=== PATIENT | male | born 1955 | race Caucasian/White ===

== ENCOUNTER 2016-10-19 10:08 | Emergency (ER) | payer MEDICARE, OTHER ==
[~2016-10-19] VITALS: Ht 160 cm; Wt 65.0 kg
[~2016-10-19 10:08] MED LIST: ASPI81 PO; BUSP10TA PO; CALC600T34 PO; CLOZ100T3 PO; GABA300C3 PO; LISI-363 PO; PROZ40CA PO; RANI150T PO; ROSU20 PO; TAB-TAB PO; TRIH5TAB2 PO; WAL-10TA2 PO; ZIPR1CAP27 PO
[2016-10-19 10:10] VITALS: BP 124/58; PULSE 74; RESP 15; TEMP 98.3; O2SAT 98
[2016-10-19] MEDS ORDERED: BUSP15TA PO (10:26)
[2016-10-19] MEDS ORDERED: FLUO1TAB3 PO (10:26)
[2016-10-19] MEDS ORDERED: GABA300C5 PO (10:26)
[2016-10-19] MEDS ORDERED: TRIH2 PO (10:26)
[2016-10-19] MEDS ORDERED: CLOZ100T3 PO (10:26)
[2016-10-19] MEDS ORDERED: ROSU20 PO (10:26)
[2016-10-19] MEDS ORDERED: ASPI81CH CHEW (10:26)
[2016-10-19] MEDS ORDERED: RANI150T PO (10:27)
[2016-10-19] MEDS ORDERED: IBUPROFEN 800 MG TAB PO ONE (10:30)
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
--- NOTE | 2016-10-19 11:10 | RADRPT ---
EXAM DATE/TIME: 10/19/2016 10:44 [facility] COMPARISON: No previous studies available for comparison. INDICATIONS : Rib pain. Patient states pain on the left side towards the back. MEDICAL HISTORY : Seizures. SURGICAL HISTORY : None. ENCOUNTER: Initial ACUITY: 3 days PAIN SCORE: 5/10 LOCATION: Bilateral chest FINDINGS: Multiple old rib fractures are present on the right. There is a single nondisplaced rib fracture of anterior eighth rib. There is no pneumothorax. Heart and pulmonary vascularity are normal. CONCLUSION: 1. Old and new rib fractures as described above. 2. There is no pneumothorax. Nabeel Kinsey MD FACR on October 19, 2016 at 11:00 Board Certified Radiologist. This report was verified electronically.
[2016-10-19] MEDS ORDERED: IBUP-232 PO (11:24)
== END 2016-10-19 11:35 | disposition home or self-care (01) ==
LOC: NEPD 10:08
DX: S22.31XA Fracture of one rib, right side, initial encounter for closed fracture (principal); Y09 Assault by unspecified means; V19.9XXA Pedal cyclist (driver) (passenger) injured in unspecified traffic accident, initial encounter; Y93.55 Activity, bike riding
CPT/HCPCS: 71020; 99283

== ENCOUNTER 2017-02-07 18:06 | Emergency (ER) | payer MEDICARE, MEDICAID ==
[~2017-02-07] VITALS: Ht 157.5 cm; Wt 67.0 kg
[~2017-02-07 18:06] MED LIST changes: -ASPI81 PO; +ASPI81CH CHEW; -BUSP10TA PO; +BUSP15TA PO; -CALC600T34 PO; +FLUO1TAB3 PO; -GABA300C3 PO; +GABA300C5 PO; +IBUP-232 PO; -LISI-363 PO; -PROZ40CA PO; -TAB-TAB PO; +TRIH2 PO; -TRIH5TAB2 PO; -WAL-10TA2 PO; -ZIPR1CAP27 PO
[2017-02-07 18:08] VITALS: BP 157/84; PULSE 75; RESP 20; TEMP 98.5; O2SAT 96
--- NOTE | 2017-02-07 19:08 | PD ---
HPI Chief Complaint: Musculoskeletal Complaint Time Seen by Provider: 18:50 Travel History International Travel<30 days: No Contact w/Intl Traveler<30days: No Traveled to known affect area: No History of Present Illness HPI 62-year-old male complains of neck pain upper back pain and left arm pain. Patient states that he has history of chronic neck back pain and left arm pain for the past 2 years. Patient has been seen by orthopedist for that. Patient has been taking ibuprofen for pain. Patient states that the pain is worse today. Patient denies any new injury. Patient denies headache. Patient denies any chest pain or shortness of breath. Patient denies abdominal pain. Patient denies any focal weakness or numbness of extremity. PFSH Past Medical History Arthritis: Yes (HANDS AND FEET) Autoimmune Disease: No Anxiety: Yes Depression: Yes Cancer: No Cardiovascular Problems: No Cerebrovascular Accident: Yes Diabetes: Yes Patient Takes Glucophage: No Diminished Hearing: No Gastrointestinal Disorders: No Genitourinary: Yes Hepatitis: No Hiatal Hernia: Yes (REPAIRED) Hypertension: Yes Medical other: Yes (HX STROKES, SEIZURES) Musculoskeletal: Yes (SCOLIOSIS) Neurologic: Yes Psychiatric: Yes (SCHIZOAFFECTIVE DISORDER) Respiratory: No Immunizations Current: No Schizophrenia: Yes Seizures: Yes Thyroid Disease: No Influenza Vaccination: No Past Surgical History Genitourinary Surgery: No Pacemaker: No Other Surgery: Yes Social History Alcohol Use: No (HX OF ALCOHOLISM) Tobacco Use: No Substance Use: No Allergies-Medications (Allergen,Severity, Reaction): Coded Allergies: ipratropium (Verified Allergy, Severe, UNKNOWN, 02/07/17) melon (Verified Allergy, Severe, UNKNOWN, 02/07/17) pineapple (Verified Allergy, Severe, UNKNOWN, 02/07/17) watermelon (Verified Allergy, Severe, UNKNOWN, 02/07/17) codeine (Verified Allergy, Mild, UNKNOW REACTION, 02/07/17) clonazepam (Verified Allergy, Unknown, 02/07/17) QUESTIONABLE ALLERGY penicillin G (Verified Allergy, Unknown, 02/07/17) Reported Meds & Prescriptions Reported Meds & Active Scripts Active Robaxin (Methocarbamol) 750 Mg Tab 750 Mg PO QID Mobic (Meloxicam) 15 Mg Tab 15 Mg PO DAILY Ibuprofen 600 Mg Tab 600 Mg PO Q6H PRN Reported Ranitidine (Ranitidine HCl) 150 Mg Tab 150 Mg PO BID Clozapine 100 Mg Tab 100 Mg PO DAILY Buspirone (Buspirone HCl) 15 Mg Tab 15 Mg PO BID Trihexyphenidyl (Trihexyphenidyl HCl) 2 Mg Tab 2 Mg PO BID Crestor (Rosuvastatin Calcium) 20 Mg Tab 20 Mg PO BID Fluoxetine (Fluoxetine HCl) 20 Mg Tab 20 Mg PO TID Gabapentin 300 Mg Cap 300 Mg PO TID Aspirin 81 Mg Chew 81 Mg CHEW DAILY Review of Systems General / Constitutional: No: Fever Eyes: No: Visual changes HENT: Positive: Neck Pain, No: Headaches Cardiovascular: No: Chest Pain or Discomfort Respiratory: No: Shortness of Breath Gastrointestinal: No: Abdominal Pain Genitourinary: No: Dysuria Musculoskeletal: Positive: Pain Skin: No Rash Neurologic: No: Weakness Psychiatric: No: Depression Endocrine: No: Polydipsia Hematologic/Lymphatic: No: Easy Bruising Physical Exam Narrative GENERAL: Well-nourished, well-developed patient. SKIN: Focused skin assessment warm/dry. HEAD: Normocephalic. EYES: No scleral icterus. No injection or drainage. NECK: Supple, trachea midline. No JVD or lymphadenopathy. Mild tenderness on palpation palpatory cervical spine and upper thoracic spine. CARDIOVASCULAR: Regular rate and rhythm without murmurs, gallops, or rubs. RESPIRATORY: Breath sounds equal bilaterally. No accessory muscle use. GASTROINTESTINAL: Abdomen soft, non-tender, nondistended. MUSCULOSKELETAL: No cyanosis, or edema. Mild tenderness on palpation the triceps area of the left upper arm. No redness or swelling no deformity noted. Full range of motion of the shoulder the elbow and wrist and fingers. Sensory motor function distally intact. Good capillary refill. BACK: Patient has mild tenderness on palpation of the thoracic area, without obvious deformity. No CVA tenderness. Neurologic exam normal. Data Data Last Documented VS Vital Signs Date Time Temp Pulse Resp B/P (MAP) Pulse Ox O2 Delivery O2 Flow Rate FiO2 02/07/17 21:50 02/07/17 18:08 98.5 75 20 96 Room Air Orders Orders Spine, Cervical - Ltd (Ap&Lat) (02/07/17 18:58) Spine, Thoracic-Ap/Lat/Sw(3vw) (02/07/17 18:58) Humerus (Min 2vws) (02/07/17 18:58) Ed Discharge Order (02/07/17 20:44) [facility] Medical Decision Making Medical Screen Exam Complete: Yes Emergency Medical Condition: Yes Interpretation(s) Last Impressions Thoracic Spine X-Ray 02/07/171857 Signed Impressions: Service Date/Time: Tuesday, February 07, 2017 19:34 - CONCLUSION: 1. Compression deformities in the thoracic spine, moderate at T6 of uncertain age. This could be evaluated with thoracic spine CT. Lee Harrison MD Humerus X-Ray 02/07/171857 Signed Impressions: Service Date/Time: Tuesday, February 07, 2017 19:19 - CONCLUSION: 1. Negative left humerus radiograph. Lee Harrison MD Cervical Spine X-Ray 02/07/171857 Signed Impressions: Service Date/Time: Tuesday, February 07, 2017 19:23 - CONCLUSION: 1. No acute findings. Moderate degenerative change at C5-6. Lee Harrison MD Differential Diagnosis Differential diagnosis including cervical thoracic strain, fracture, HNP, radiculopathy, Narrative Course 62-year-old male complains of neck pain and upper back pain and left arm pain. History of chronic neck and back pain and left arm pain in the past. Diagnosis Primary Impression: Acute exacerbation of chronic low back pain Additional Impression: Arm pain, left Patient Instructions: General Instructions Additional Instructions: Take medications as needed for pain. Follow-up with personal physician and orthopedist. Med/Other Pt SpecificInfo: Prescription(s) given Scripts Methocarbamol (Robaxin) 750 Mg Tab 750 MG PO QID for Pain, #40 TAB 0 Refills Prov: Yazan Horton MD 02/07/17 Meloxicam (Mobic) 15 Mg Tab 15 MG PO DAILY for Pain, #20 TAB 0 Refills Prov: Yazan Horton MD 02/07/17 Disposition: 01 DISCHARGE HOME Condition: Stable Yazan Horton MD Feb 07, 2017 19:08
--- NOTE | 2017-02-07 20:10 | RADRPT ---
EXAM DATE/TIME: 02/07/2017 19:19 [facility] COMPARISON: No previous studies available for comparison. INDICATIONS : Pain. MEDICAL HISTORY : Seizures. SURGICAL HISTORY : None. ENCOUNTER: Initial ACUITY: 1 day PAIN SCORE: 5/10 LOCATION: Left humerus. FINDINGS: Two view examination of the left humerus demonstrates no evidence of fracture or dislocation. Bony m ineralization is normal. The soft tissue structures are intact. CONCLUSION: 1. Negative left humerus radiograph. Lee Harrison MD on February 07, 2017 at 20:07 Board Certified Radiologist. This report was verified electronically.
--- NOTE | 2017-02-07 20:11 | RADRPT ---
EXAM DATE/TIME: 02/07/2017 19:23 [facility] COMPARISON: No previous studies available for comparison. INDICATIONS : Pain. MEDICAL HISTORY : None. SURGICAL HISTORY : None. ENCOUNTER: Initial ACUITY: 1 week PAIN SCORE: 5/10 LOCATION: Neck. FINDINGS: Two projection examination was performed. There is normal alignment and curvature of the vertebral b odies down to the level of C7. No evidence of fracture or subluxation. Vertebral body height is reinier ntained. The disc spaces are maintained. The prevertebral soft tissues are of normal thickness. Th e atlanto-axial articulation is intact. CONCLUSION: 1. No acute findings. Moderate degenerative change at C5-6. Lee Harrison MD on February 07, 2017 at 20:09 Board Certified Radiologist. This report was verified electronically.
--- NOTE | 2017-02-07 20:18 | RADRPT ---
EXAM DATE/TIME: 02/07/2017 19:34 [facility] COMPARISON: No previous studies available for comparison. INDICATIONS : Pain. MEDICAL HISTORY : None. SURGICAL HISTORY : None. ENCOUNTER: Initial ACUITY: 1 week PAIN SCORE: 5/10 LOCATION: Upper back. FINDINGS: Mild scoliosis. There are multiple compression deformities in the thoracic spine. This includes a mod erate compression deformity at T6 and also compression deformity of L1. Mild endplate depressions als o present at several vertebra and upper thoracic spine. Age is somewhat indeterminate. CONCLUSION: 1. Compression deformities in the thoracic spine, moderate at T6 of uncertain age. This could be eval uated with thoracic spine CT. Lee Harrison MD on February 07, 2017 at 20:10 Board Certified Radiologist. This report was verified electronically.
[2017-02-07] MEDS ORDERED: ROBA750T PO (20:37)
[2017-02-07] MEDS ORDERED: MOBI15TA PO (20:37)
== END 2017-02-07 21:51 | disposition home or self-care (01) ==
LOC: NEPD 18:06
DX: M54.5 Low back pain (principal); G89.29 Other chronic pain; M79.602 Pain in left arm; M54.2 Cervicalgia; E11.9 Type 2 diabetes mellitus without complications; Z86.73 Personal history of transient ischemic attack (TIA), and cerebral infarction without residual deficits; I10 Essential (primary) hypertension; R56.9 Unspecified convulsions; M41.9 Scoliosis, unspecified
CPT/HCPCS: 72040; 72072; 73060; 99284

== ENCOUNTER 2017-08-24 14:06 | Emergency (ER) | payer OTHER, MEDICARE, MEDICAID ==
[~2017-08-24] VITALS: Ht 177.8 cm; Wt 80.0 kg
[~2017-08-24 14:06] MED LIST changes: +ASPI-516 CHEW; -ASPI81CH CHEW; +MOBI15TA PO; +ROBA750T PO
[2017-08-24 14:14] VITALS: BP 129/70; PULSE 79; RESP 16; TEMP 98.5; O2SAT 98
[2017-08-24] MEDS ORDERED: TETANUS/DIPHTHERIA TOXOID ADULT 0.5 ML VIAL IM ONE (14:30)
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
== END 2017-08-24 18:33 | disposition home or self-care (01) ==
LOC: NEPD 14:06
DX: S01.01XA Laceration without foreign body of scalp, initial encounter (principal); F25.9 Schizoaffective disorder, unspecified; Z23 Encounter for immunization; V03.90XA Pedestrian on foot injured in collision with car, pick-up truck or van, unspecified whether traffic or nontraffic accident, initial encounter; Y92.410 Unspecified street and highway as the place of occurrence of the external cause
CPT/HCPCS: 12001; 70450; 71046; 72125; 90471; 90714

== ENCOUNTER 2017-08-31 14:15 | Emergency (ER) | payer MEDICAID, MEDICARE ==
[~2017-08-31] VITALS: Ht 157.5 cm; Wt 65.0 kg
[2017-08-31 14:29] VITALS: BP 112/78; PULSE 76; RESP 16; TEMP 98; O2SAT 97
--- NOTE | 2017-08-31 14:43 | PD ---
HPI Chief Complaint: Wound/Suture/Staple Re-Check Time Seen by Provider: 14:39 Travel History International Travel<30 days: No Contact w/Intl Traveler<30days: No Traveled to known affect area: No History of Present Illness HPI Patient comes emergency department requesting staple removal from scalp that was placed 7 days ago. Patient denies any complaints or concerns. Reports been keeping it clean using soap and water. Denies any making symptoms better or worse. Severity mild. PFSH Past Medical History Arthritis: Yes (HANDS AND FEET) Autoimmune Disease: No Anxiety: Yes Depression: Yes Cancer: No Cardiovascular Problems: No Cerebrovascular Accident: Yes Diabetes: Yes Diminished Hearing: No Gastrointestinal Disorders: No Genitourinary: Yes Hepatitis: No Hiatal Hernia: Yes (REPAIRED) Hypertension: Yes Musculoskeletal: Yes (SCOLIOSIS) Neurologic: Yes Psychiatric: Yes (SCHIZOAFFECTIVE DISORDER) Respiratory: No Immunizations Current: No Schizophrenia: Yes Seizures: Yes Thyroid Disease: No Past Surgical History Genitourinary Surgery: No Pacemaker: No Thoracic Surgery: No Other Surgery: Yes Social History Alcohol Use: No (HX OF ALCOHOLISM) Tobacco Use: No Substance Use: No Allergies-Medications (Allergen,Severity, Reaction): Coded Allergies: ipratropium (Verified Allergy, Severe, UNKNOWN, 08/31/17) melon (Verified Allergy, Severe, UNKNOWN, 08/31/17) pineapple (Verified Allergy, Severe, UNKNOWN, 08/31/17) watermelon (Verified Allergy, Severe, UNKNOWN, 08/31/17) codeine (Verified Allergy, Mild, UNKNOW REACTION, 08/31/17) clonazepam (Verified Allergy, Unknown, 08/31/17) QUESTIONABLE ALLERGY penicillin G (Verified Allergy, Unknown, 08/31/17) Reported Meds & Prescriptions Reported Meds & Active Scripts Active Robaxin (Methocarbamol) 750 Mg Tab 750 Mg PO QID Mobic (Meloxicam) 15 Mg Tab 15 Mg PO DAILY Ibuprofen 600 Mg Tab 600 Mg PO Q6H PRN Reported Ranitidine (Ranitidine HCl) 150 Mg Tab 150 Mg PO BID Clozapine 100 Mg Tab 100 Mg PO DAILY Buspirone (Buspirone HCl) 15 Mg Tab 15 Mg PO BID Trihexyphenidyl (Trihexyphenidyl HCl) 2 Mg Tab 2 Mg PO BID Crestor (Rosuvastatin Calcium) 20 Mg Tab 20 Mg PO BID Fluoxetine (Fluoxetine HCl) 20 Mg Tab 20 Mg PO TID Gabapentin 300 Mg Cap 300 Mg PO TID Aspirin 81 Mg Chew 81 Mg CHEW DAILY Review of Systems Except as stated in HPI: all other systems reviewed are Neg Physical Exam Narrative GENERAL: Well-developed, overly nourished, in no acute distress, and non-ill appearing. SKIN: Well-healing laceration over occipital lobe. 7 lashanda are noted that are dry clean and intact. No signs of infection. No crepitus. HEAD: Atraumatic. Normocephalic. EYES: Pupils equal and round. EOMI. No scleral icterus. No injection or drainage. ENT: No nasal bleeding or discharge. Mucous membranes pink and moist. NECK: Trachea midline. Supple. No nuclear rigidity. RESPIRATORY: No accessory muscle use. No respiratory distress. MUSCULOSKELETAL: No obvious deformities. No clubbing. No cyanosis. No edema. Full range of motion. NEUROLOGICAL: Awake and alert. No obvious cranial nerve deficits. Motor grossly within normal limits. Normal speech. PSYCHIATRIC: Appropriate mood and affect; insight and judgment normal. Data Data Last Documented VS Vital Signs Date Time Temp Pulse Resp B/P (MAP) Pulse Ox O2 Delivery O2 Flow Rate FiO2 08/31/17 14:29 98.0 76 16 112/78 (89) 97 Orders Orders Ed Discharge Order (08/31/17 14:43) MDM Medical Decision Making Medical Screen Exam Complete: Yes Emergency Medical Condition: Yes Differential Diagnosis Wound check, staple removal, wound infection Narrative Course Patient in no obvious distress upon re-evaluation. Any questions/concerns in reference to patient diagnosis/condition discussed and clarified prior to patient's discharge. Reinforced sheer importance of close follow up with patient 's primary physician or primary care clinic. Instructed patient to return to ED immediately, if symptoms return/worsen. Patient showed understanding of above instructions. Further instructions and recommendations were detailed in discharge paperwork. Patient ambulated without difficulty out of ED at discharge. Procedures Procedure Narrative Verbal consent was obtained. 7 [place] were easily removed. Patient tolerated procedure well. There was no complications. Diagnosis Primary Impression: Removal of lashanda Patient Instructions: General Instructions, Stitches Removal (ED) Additional Instructions: Follow-up with your primary care physician in 3-5 days for reevaluation. Keep wound dry and clean as possible using soap and water. Use Neosporin to promote healing. Return to the emergency department if symptoms get worse. Disposition: 01 DISCHARGE HOME Condition: Stable Joe Dickey August 31, 2017 14:43
== END 2017-08-31 15:18 | disposition home or self-care (01) ==
LOC: NEPK 14:15
DX: S01.01XD Laceration without foreign body of scalp, subsequent encounter (principal); X58.XXXD Exposure to other specified factors, subsequent encounter; Z48.02 Encounter for removal of sutures
CPT/HCPCS: 99281

== ENCOUNTER 2017-09-07 10:48 | Emergency (ER) | payer MEDICARE ==
[~2017-09-07] VITALS: Ht 157.5 cm; Wt 65.0 kg
[2017-09-07 11:02] VITALS: BP 171/80; PULSE 72; RESP 17; TEMP 97.7
--- NOTE | 2017-09-07 11:10 | PD ---
HPI Chief Complaint: Wound/Suture/Staple Re-Check Time Seen by Provider: 11:09 Travel History International Travel<30 days: No Contact w/Intl Traveler<30days: No Traveled to known affect area: No History of Present Illness HPI 62-year-old male presents the ED for staple removal. Patient states that he fell on 08/24 and had lashanda placed in the ED. He practiced good wound care and had the lashanda removed on 08/31. He states that at that time there was a large scab over the area. He states that as the scab has healed he realized there was a remaining staple. He denies discharge from the wound, redness, warmth, fevers, chills. PFSH Past Medical History Arthritis: Yes (HANDS AND FEET) Autoimmune Disease: No Anxiety: Yes Depression: Yes Cancer: No Cardiovascular Problems: No Cerebrovascular Accident: Yes Diabetes: Yes Diminished Hearing: No Gastrointestinal Disorders: No Genitourinary: Yes Hepatitis: No Hiatal Hernia: Yes (REPAIRED) Hypertension: Yes Musculoskeletal: Yes (SCOLIOSIS) Neurologic: Yes Psychiatric: Yes (SCHIZOAFFECTIVE DISORDER) Respiratory: No Immunizations Current: No Schizophrenia: Yes Seizures: Yes Thyroid Disease: No Past Surgical History Genitourinary Surgery: No Pacemaker: No Thoracic Surgery: No Other Surgery: Yes Social History Alcohol Use: No (HX OF ALCOHOLISM) Tobacco Use: No Substance Use: No Allergies-Medications (Allergen,Severity, Reaction): Coded Allergies: ipratropium (Verified Allergy, Severe, UNKNOWN, 09/07/17) melon (Verified Allergy, Severe, UNKNOWN, 09/07/17) pineapple (Verified Allergy, Severe, UNKNOWN, 09/07/17) watermelon (Verified Allergy, Severe, UNKNOWN, 09/07/17) codeine (Verified Allergy, Mild, UNKNOW REACTION, 09/07/17) clonazepam (Verified Allergy, Unknown, 09/07/17) QUESTIONABLE ALLERGY penicillin G (Verified Allergy, Unknown, 08/31/17) Reported Meds & Prescriptions Reported Meds & Active Scripts Active Robaxin (Methocarbamol) 750 Mg Tab 750 Mg PO QID Mobic (Meloxicam) 15 Mg Tab 15 Mg PO DAILY Ibuprofen 600 Mg Tab 600 Mg PO Q6H PRN Reported Ranitidine (Ranitidine HCl) 150 Mg Tab 150 Mg PO BID Clozapine 100 Mg Tab 100 Mg PO DAILY Buspirone (Buspirone HCl) 15 Mg Tab 15 Mg PO BID Trihexyphenidyl (Trihexyphenidyl HCl) 2 Mg Tab 2 Mg PO BID Crestor (Rosuvastatin Calcium) 20 Mg Tab 20 Mg PO BID Fluoxetine (Fluoxetine HCl) 20 Mg Tab 20 Mg PO TID Gabapentin 300 Mg Cap 300 Mg PO TID Aspirin 81 Mg Chew 81 Mg CHEW DAILY Review of Systems Except as stated in HPI: all other systems reviewed are Neg Physical Exam Narrative GENERAL: Well-nourished, well-developed patient. SKIN: Focused skin assessment warm/dry. HEAD: Normocephalic. Well-healing scar of the posterior occiput. One remaining staple without signs of infection and a small amount of scabbing present. EYES: No scleral icterus. No injection or drainage. NECK: Supple, trachea midline. No JVD or lymphadenopathy. CARDIOVASCULAR: Regular rate and rhythm without murmurs, gallops, or rubs. RESPIRATORY: Breath sounds equal bilaterally. No accessory muscle use. GASTROINTESTINAL: Abdomen soft, non-tender, nondistended. MUSCULOSKELETAL: No cyanosis, or edema. BACK: Nontender without obvious deformity. No CVA tenderness. Data Data Last Documented VS Vital Signs Date Time Temp Pulse Resp B/P (MAP) Pulse Ox O2 Delivery O2 Flow Rate FiO2 09/07/17 11:02 97.7 72 17 171/80 (110) Orders Orders Ed Discharge Order (09/07/17 11:10) MDM Medical Decision Making Medical Screen Exam Complete: Yes Emergency Medical Condition: Yes Differential Diagnosis Wound recheck versus wound infection versus staple removal versus other Narrative Course 62-year-old male presents to the ED for staple removal. Patient fell on 08/24 and had lashanda placed in the ED. He returned on 08/31 for staple removal. At that time there was a large, thick scab over the area. As that scab has resolved the patient realized there was a single staple left. On exam there is a single staple and a well-healing suture line without signs of infection. This was removed without incident. Patient's instructed to use sunscreen to avoid worsening scarring, follow with the primary care. He is stable and discharged home. Diagnosis Primary Impression: Encounter for staple removal Referrals: Primary Care Physician Additional Instructions: Use sunscreen for the next 6 months to avoid worsening scarring. Follow with the primary care provider. Return to the ED for any urgent or emergent medical condition. Disposition: 01 DISCHARGE HOME Condition: Stable Roxana Hermosillo September 07, 2017 11:10
== END 2017-09-07 11:33 | disposition home or self-care (01) ==
LOC: NEPK 10:48
DX: T14.8XXD Other injury of unspecified body region, subsequent encounter (principal); W19.XXXD Unspecified fall, subsequent encounter; Z48.02 Encounter for removal of sutures
CPT/HCPCS: 99281